=== PATIENT | female | born 1985 | race Caucasian/White ===

== ENCOUNTER 2023-01-23 10:06 | Inpatient (IN) ==
[2023-01-23] MEDS ORDERED: Lactated Ringers 1000 ml BAG 1,000 ML IV ONE ×2 (11:01→17:52)
[2023-01-23] MEDS ORDERED: Lidocaine 1% VIAL 10 MG/ML 30 ML VIAL INJ PRN (11:01)
[2023-01-23 13:20] LABS: ABS Eosinophils 0.1 10^3/uL (0.0-0.5); ABS Lymphocytes 1.7 10^3/uL (1.0-4.8); ABS Monocytes 0.4 10^3/uL (0.0-0.9); ABS Neutrophils 9.1 10^3/uL (1.5-7.6); Eosinophil % 0.5 %; Hematocrit 32.2 % (35-45); Hemoglobin 10.6 g/dL (11.5-14.3); Lymphocyte % 15.4 %; Mean Corpuscular Hemoglobin 28.3 pg (27-33); Mean Corpuscular Hgb Conc 32.9 g/dL (31-36); Platelet Count 204 10^3/uL (150-450); Red Blood Count 3.75 10^6/uL (3.63-4.92); Red Cell Distribution Width 14.4 % (12-17); White Blood Count 11.3 10^3/uL (3.8-11.8)
[2023-01-23] MEDS ORDERED: Oxytocin in LR 20,000 MILLI.UNIT/1,000 ML BAG IV SCH (13:50)
[2023-01-23 14:01] LABS: Albumin 3.2 g/dL (3.2-5.2); Albumin/Globulin Ratio 1.2 (1-3); Calcium 9.9 mg/dL (8.6-10.3); Creatinine, Serum 0.7 mg/dL (0.51-0.95); Globulin 2.6 g/dL (2-4); Potassium 4.3 mmol/L (3.5-5.0); Total Bilirubin 0.3 mg/dL (0.2-1.0); Total Protein 5.8 g/dL (6.4-8.9); Uric Acid 7.6 mg/dL (2.3-6.6); eGFR CKD-EPI 114.2 (>60)
[2023-01-23] MEDS ORDERED: OBEPIDURAL (200 ML) 200 ML EPIDURAL ONE (16:07)
[2023-01-23] MEDS ORDERED: Phenylephrine 40 mcg/mL 10mL (400mcg) SYRINGE ONE (16:07)
[2023-01-23] MEDS: Lidocaine 1.5% EPI 1:200,000 30 ML SDV ONE ×2 (16:45→17:57)
[2023-01-23] MEDS ORDERED: Sodium Citrate/Citric Acid LIQ 15 ML UDC PO PRN (17:52)
[2023-01-23] MEDS ORDERED: Phenylephrine 40 mcg/mL 10mL (400mcg) SYRINGE IV PUSH PRN ×2 (17:52)
[2023-01-23] MEDS ORDERED: OBEPIDURAL (200 ML) 200 ML EPIDURAL SCH (18:00)
[2023-01-23] MEDS ORDERED: Lactated Ringers 1000 ml BAG 1,000 ML IV SCH (18:00)
[2023-01-23] MEDS ORDERED: fentaNYL 100 mcg/2 ml 50 MCG/ML VIAL ONE (18:13)
[2023-01-23 18:18] LABS: Urine Creatinine Concentration 73.47 mg/dL (20.00-320.00); Urine TP Creat Ratio 0.77 mg/mg
[2023-01-23 18:28] LABS: Urine Benzodiazepine Screen None Detected (None Detect); Urine Cannabinoids Screen None Detected (None Detect); Urine Opiates Screen None Detected (None Detect)
[2023-01-23 18:30] LABS: Urine Appearance Cloudy; Urine Bilirubin Negative (Negative); Urine Blood 1+ (Negative); Urine Color Yellow; Urine Glucose Negative (Negative); Urine Ketones Negative (Negative); Urine Nitrite Negative (Negative); Urine Protein 2+(100 mg/dL) (Negative); Urine Urobilinogen Negative (Negative)
[2023-01-23 18:33] LABS: Urine Bacteria Absent (Absent); Urine Red Blood Cell 3+(>10/hpf) (Absent); Urine Squamous Epithelial Cell Present (Absent); Urine White Blood Cell Trace(0-5/hpf) (Absent)
[2023-01-24] MEDS ORDERED: Glycerin ADULT 2.4 gm SUPP PR PRN (01:31)
[2023-01-24] MEDS ORDERED: Oxytocin in LR 20,000 MILLI.UNIT/1,000 ML BAG IV SCH (01:35)
[2023-01-24] MEDS ORDERED: Lactated Ringers 1000 ml BAG 1,000 ML IV SCH (02:00)
[2023-01-24] MEDS: Dibucaine 1% OINT 28.35 GM TUBE PR PRN ×2 (02:11→03:10)
[2023-01-24] MEDS: Witch Hazel PAD JAR TOPICAL PRN ×2 (02:11→03:10)
[2023-01-24] MEDS ORDERED: Calcium Carb (TUMS) 500 mg CHEW TAB PO PRN (02:33)
[2023-01-24] MEDS ORDERED: Lidocaine 1% MPF 5 ML VIAL ONE (04:28)
[2023-01-25 06:37] LABS: ABS Eosinophils 0.1 10^3/uL (0.0-0.5); ABS Lymphocytes 2.5 10^3/uL (1.0-4.8); ABS Monocytes 0.4 10^3/uL (0.0-0.9); ABS Neutrophils 11.7 10^3/uL (1.5-7.6); ABS Nucleated RBC 0.01 10^3/ul; Eosinophil % 0.5 %; Hematocrit 27.2 % (35-45); Lymphocyte % 16.8 %; Mean Corpuscular Hemoglobin 28.4 pg (27-33); Mean Corpuscular Hgb Conc 33.1 g/dL (31-36); Mean Corpuscular Volume 85.6 fL (80-97); Mean Platelet Volume 10.3 fL (7.5-11.2); Nucleated Red Blood Cells % 0.1 %/100WBC (0.0-0.8); Platelet Count 185 10^3/uL (150-450); Red Blood Count 3.18 10^6/uL (3.63-4.92); Red Cell Distribution Width 14.7 % (12-17); White Blood Count 14.7 10^3/uL (3.8-11.8)
[2023-01-25] MEDS: Dibucaine 1% OINT 28.35 GM TUBE PR PRN (18:08)
[2023-01-25] MEDS: Witch Hazel PAD JAR TOPICAL PRN (18:08)
[2023-01-26 08:28] VITALS: BP 154/92
== END 2023-01-26 11:50 | disposition home or self-care (01) | DRG 806 ==
LOC: MCHOBOUT 10:06 → MCHOB 11:00
PROVIDERS: ADMIT Midwife; ATTEND Midwife